=== PATIENT | female | born 1960 | race African-American/Black ===

== ENCOUNTER 2021-07-19 11:34 | Emergency (ER) | payer OTHER, MEDICAID ==
[~2021-07-19] VITALS: Ht 162.6 cm; Wt 100.0 kg
[2021-07-19 11:38] VITALS: BP 162/82
[2021-07-19] MEDS ORDERED: diphenhydrAMINE HCL 25 MG CAPSULE PO ONE (11:45)
[2021-07-19] MEDS ORDERED: DEXAMETHASONE 4 MG TABLET PO ONE (12:15)
[2021-07-19] MEDS ORDERED: PROPARACAINE 0.5% OPHTH SOLUTION 15ML BOTTLE. OS ONE (12:30)
[2021-07-19] MEDS ORDERED: FLUORESCEIN OPHTH TEST STRIP. OS ONE (12:30)
--- NOTE | 2021-07-19 13:28 | PHYS DOC ---
Past Medical History Additional Past Medical Histor: NEUROPATHY Past Surgical History: Hysterectomy Additional Past Surgical Histo: BILAT BUNONECTOMY General Adult EDM: Chief Complaint: ITCHING HPI: HPI: Patient is a 60 year old female who presents with urticarious rash that she believes to be poison clementina. The rash appeared 3 days ago, but she is concerned as it has now spread to her neck and the left side of her face. Patient states that she was walking outside and went through many plants. Patient has had dermatitis secondary to poison clementina/oak in the past. Patient denies change in visual acuity, visual field deficits or discharge. Review of Systems: Review of Systems: Constitutional: Denies fever, chills or generalized weakness Eyes: See HPI HENT: Denies ear pain, nasal congestion or sore throat Respiratory: Denies cough or shortness of breath Cardiovascular: Denies chest pain, palpitations or edema GI: Denies abdominal pain, nausea, vomiting, bloody stools or diarrhea : Denies dysuria or hematuria Musculoskeletal: Denies back pain or joint pain Integument: See HPI Neurologic: Denies headache, focal weakness or sensory changes Heart Score: C/O Chest Pain: No Current Medications: Current Medications Medications (Trade) Dose Ordered Sig/Armando Start Time Stop Time Status Last Admin Dose Admin Dexamethasone (Decadron) 10 mg 1X ONCE 07/19/21 12:15 07/19/21 12:16 DC 07/19/21 12:01 10 MG Diphenhydramine HCl (Benadryl) 50 mg 1X ONCE 07/19/21 11:45 07/19/21 11:51 DC 07/19/21 12:01 50 MG Fluorescein Sodium (Ful-Maine) 1 strip 1X ONCE 07/19/21 12:30 07/19/21 12:31 DC 07/19/21 12:44 1 STRIP Proparacaine HCl (Alcaine) 1 drop 1X ONCE 07/19/21 12:30 07/19/21 12:31 DC 07/19/21 12:44 1 DROP Allergies: Allergies: Allergies Coded Allergies Type Severity Reaction Last Updated Verified Penicillins Allergy Unknown 07/19/21 Yes Physical Exam: PE: Constitutional: Well developed, well nourished, no acute distress, non-toxic appearance. HENT: Normocephalic, atraumatic, bilateral external ears normal, oropharynx moist, no oral exudates, nose normal. Eyes: PERRL, EOMI, conjunctiva normal, no discharge, Montemayor lamp exam with fluorescein stain not reveal any corneal abrasions or globe rupture, left-sided periorbital dermatitis of the skin. Neck: Normal range of motion, no stridor. Skin: Diffuse scaling, urticarious rash with slight erythema consistent with contact dermatitis. Extremities: No tenderness, no cyanosis, no clubbing, ROM intact, no edema. Neurologic: Alert and oriented x4, normal motor function, normal sensory function, no focal deficits noted. Current Patient Data: Vital Signs: Vital Signs Date Time Temp Pulse Resp B/P (MAP) Pulse Ox O2 Delivery O2 Flow Rate FiO2 07/19/21 11:38 98.0 87 20 162/82 (108) 100 Room Air 98.0 Course & Med Decision Making: Course & Med Decision Making Pertinent Labs and Imaging studies reviewed. (See chart for details) Patient is a 60-year-old female who presents with diffuse rash across her torso, upper extremities and has now spread to her face. Montemayor lamp exam with fluorescein does not reveal any corneal abrasions. Spoke with Dr. Kong, ophthalmology, who does not recommend any further ophthalmologic intervention. Patient is cleared to apply topical 1% hydrocortisone, but he recommends that she be advised to avoid getting the steroid cream directly into the eye or conjunctival membranes. Patient was advised of findings and recommendations. Return precautions were provided. Patient understands and is agreeable to discharge plan. Dragon Disclaimer: Dragon Disclaimer: This electronic medical record was generated, in whole or in part, using a voice recognition dictation system. Departure Departure Impression: Primary Impression: Contact dermatitis due to plant Disposition: 01 HOME / SELF CARE / HOMELESS Condition: STABLE Referrals: RAYRAY ALBERTS PA-C (PCP) Patient Instructions: Poison Clementina, [id number] Additional Instructions: EMERGENCY DEPARTMENT GENERAL DISCHARGE INSTRUCTIONS Thank you for coming to [facility] Emergency Department (ED) today and trusting us with you care. We trust that you had a positive experience in our Emergency Department. If you wish to speak to the department management, you may call the director at . YOUR FOLLOW UP INSTRUCTIONS ARE FOLLOWS: 1. Follow up with your primary care doctor. If you do not have a primary doctor, please ask for a resource list of physicians or clinics that may be able to assist you with follow up care. 2. The emergency provider has interpreted your imaging studies, if any were ordered. The radiology phlebotomy specialist also reviewed them. If there is a change in the findings, you will be notified in 48 hours when at all possible. 3. If a lab test or culture has been done, your results will be reviewed and you will be notified if you need a change in treatment. 4. Follow instructions verbalized to you and refer to the printouts if needed. ADDITIONAL INSTRUCTIONS AND INFORMATION: 1. Your care today has been supervised by a physician who is specially trained in emergency care. Many problems require more than one evaluation for a complete diagnosis and treatment. We recommend that you schedule your follow up appointment as recommended to ensure complete treatment of you illness or injury. If you are unable to obtain follow up care and continue to have a problem, or if your condition worsens, we recommend that you return to the ED. 2. We are not able to safely determine your condition over the phone nor are we able to give sound medical advice over the phone. For these safety reasons, if you call for medical advice we will ask you to come to the ED for further evaluation. 3. If you have any questions regarding these discharge instructions please call the ED at . SAFETY INFORMATION: In the interest of safety, wellness, and injury prevention; we encourage you to wear your seat belt, if you smoke; quite smoking, and we encourage family to use a protective helmet for bicycling and other sporting events that present an increased risk for head injury. IF YOUR SYMPTOMS WORSEN OR NEW SYMPTOMS DEVELOP, OR YOU HAVE CONCERNS ABOUT YOUR CONDITION; OR IF YOUR CONDITION WORSENS WHILE YOU ARE WAITING FOR YOUR FOLLOW UP APPOINTMENT; EITHER CONTACT YOUR PRIMARY CARE DOCTOR, THE PHYSICIAN WHOSE NAME AND NUMBER YOU WERE GIVEN, OR RETURN TO THE ED IMMEDIATELY. KATLYN PERSAUD July 19, 2021 13:28
== END 2021-07-19 13:42 | disposition home or self-care (01) ==
LOC: ER 11:34
DX: L25.9 Unspecified contact dermatitis, unspecified cause (principal); Z88.0 Allergy status to penicillin
CPT/HCPCS: 99284; Q0163